=== PATIENT | male | born 1990 | race Caucasian/White ===

== ENCOUNTER 2020-04-04 15:08 | Inpatient (IN) ==
[2020-04-04] MEDS ORDERED: ONDANSETRON 4 MG/2 ML VIAL IV STA (16:09)
[2020-04-04] MEDS ORDERED: SODIUM CHLORIDE 0.9% 1,000 ML IV STA (16:09)
[2020-04-04 16:28] LABS: Basophils # 0.1 10*3/uL (0.0-0.2); Basophils % 0.9 % (0.0-0.8); Eosinophils # 0.3 10*3/uL (0.0-0.87); Eosinophils % 4.6 % (0.00-10.9); Hemoglobin 14.2 GM/DL (14.0-18.0); Immature Granulocytes % 0.2 %; Immature Granulocytes Absolute 0.01 #; Lymphocytes % 36.4 % (21.2-54.2); Mean Corpuscular Volume 91.5 FL (87-102); Mean Platelet Volume 10.9 FL (9.6-12.0); Monocytes % 11.3 % (1.7-12.7); Neutrophils % 46.6 % (38.7-73.9); Platelet Count 197 T/CUMM (130-400); Red Cell Distribution Width 14.8 % (9.3-17.3); White Blood Count 5.6 T/CUMM (4-12)
[2020-04-04 16:53] LABS: Bilirubin,Urine Small mg/dL (Negative); Blood, Urine Negative (Negative); Glucose,Urine (UA) >=500 mg/dL (Negative); Ketones,Urine Negative (Negative); Nitrite,Urine Negative (Negative); Protein,Urine Negative; Squamous Epithelial Cell,Urine Occasional /HPF (0-10); Urine Appearance CLEAR (Clear); Urine Color Amber (Yellow); Urine Specific Gravity 1.015 (1.001-1.035); Urine Urobilinogen < 2.0 EU/DL (0.2-1.0)
[2020-04-04 16:56] LABS: Albumin 3.4 G/DL (3.4-5.0); Bilirubin,Total 4.2 MG/DL (0.2-1.0); Calcium 8.5 MG/DL (8.5-10.1); Potassium 3.9 MMOL/L (3.5-5.1); Total Protein 6.4 G/DL (6.4-8.3)
[2020-04-04 17:40] LABS: Barbiturates Screen,Urine Negative (Negative); Benzodiazepines Screen,Urine Negative (Negative); Cannabinoid Screen,Urine Positive (Negative); Opiate Screen,Urine Negative (Negative); Phencyclidine Screen,Urine Negative (Negative)
[2020-04-04 17:54] LABS: Hepatitis B Core IgM Quant 0.07 Index; Hepatitis B Surface Ag Quant < 0.10 Index; Hepatitis B Surface Ag Result Non-Reactive (NonReactive); Hepatitis C Virus Ab Quant 0.06 Index; Hepatitis C Virus Ab Result Non-Reactive (NonReactive)
[2020-04-04] MEDS ORDERED: GLUCAGON 1 MG VIAL IM PRN (18:18)
[2020-04-04] MEDS ORDERED: DEXTROSE 50% 25 GM/50 ML VIAL IV PRN (18:18)
[2020-04-04] MEDS ORDERED: PROMETHAZINE 25 MG/1 ML VIAL IM PRN (18:18)
[2020-04-04] MEDS: MORPHINE 4 MG/1 ML VIAL IV PRN (20:35)
[2020-04-04] MEDS: ENOXAPARIN 40 MG/0.4 ML SYRINGE SUBCUT SCH (20:36)
[2020-04-05] MEDS: MORPHINE 4 MG/1 ML VIAL IV PRN ×3 (00:29→15:59)
[2020-04-05] MEDS: POTASSIUM CHLORIDE INJ 10 MEQ in SODIUM CHLORIDE 0.45% 1,000 ML IV SCH ×3 (00:30→18:23)
[2020-04-05 05:34] LABS: Basophils # 0.1 10*3/uL (0.0-0.2); Basophils % 0.9 % (0.0-0.8); Eosinophils # 0.6 10*3/uL (0.0-0.87); Eosinophils % 11.4 % (0.00-10.9); Hematocrit 37.7 VOL% (42.0-52.0); Immature Granulocytes % 0.4 %; Immature Granulocytes Absolute 0.02 #; Lymphocytes # 2.2 10*3/uL (1.4-4.0); Lymphocytes % 40.2 % (21.2-54.2); Mean Corpuscular HGB Conc 34.5 GM/DL (32-36); Mean Corpuscular Volume 88.3 FL (87-102); Mean Platelet Volume 11.5 FL (9.6-12.0); Monocytes % 13.4 % (1.7-12.7); Neutrophils % 33.7 % (38.7-73.9); Platelet Count 190 T/CUMM (130-400); Red Blood Count 4.27 MC/CUMM (3.8-5.5); Red Cell Distribution Width 14.9 % (9.3-17.3); White Blood Count 5.4 T/CUMM (4-12)
[2020-04-05 05:57] LABS: Eosinophils 10 % (0-10); Lymphocytes 43 % (20-55); Platelet Estimate Normal; Segmented Neutrophils 41 % (50-85)
[2020-04-05 05:58] LABS: Total Cells Counted 100
[2020-04-05 05:59] LABS: Albumin 2.7 G/DL (3.4-5.0); Bilirubin,Total 4.6 MG/DL (0.2-1.0); Osmolality,Calculated 276.4 MOS/KG (273-304); Potassium 3.8 MMOL/L (3.5-5.1); Total Protein 5.4 G/DL (6.4-8.3)
[2020-04-05] MEDS: ONDANSETRON 4 MG/2 ML VIAL IV PRN ×2 (06:48→16:04)
[2020-04-05] MEDS: PANTOPRAZOLE 40 MG TABLET PO SCH (10:50)
[2020-04-05] MEDS: ENOXAPARIN 40 MG/0.4 ML SYRINGE SUBCUT SCH (22:19)
[2020-04-06] MEDS: POTASSIUM CHLORIDE INJ 10 MEQ in SODIUM CHLORIDE 0.45% 1,000 ML IV SCH ×3 (03:07→22:50)
[2020-04-06 09:31] LABS: Basophils # 0.1 10*3/uL (0.0-0.2); Basophils % 1.3 % (0.0-0.8); Eosinophils # 0.3 10*3/uL (0.0-0.87); Eosinophils % 6.5 % (0.00-10.9); Hematocrit 42.4 VOL% (42.0-52.0); Hemoglobin 14.1 GM/DL (14.0-18.0); Immature Granulocytes % 0.4 %; Immature Granulocytes Absolute 0.02 #; Lymphocytes # 1.7 10*3/uL (1.4-4.0); Lymphocytes % 32.3 % (21.2-54.2); Mean Corpuscular HGB Conc 33.3 GM/DL (32-36); Mean Corpuscular Volume 89.3 FL (87-102); Mean Platelet Volume 10.5 FL (9.6-12.0); Monocytes % 13.1 % (1.7-12.7); Neutrophils % 46.4 % (38.7-73.9); Platelet Count 221 T/CUMM (130-400); Red Blood Count 4.75 MC/CUMM (3.8-5.5); Red Cell Distribution Width 15.5 % (9.3-17.3); White Blood Count 5.2 T/CUMM (4-12)
[2020-04-06] MEDS: ONDANSETRON 4 MG/2 ML VIAL IV PRN (09:34)
[2020-04-06] MEDS: PANTOPRAZOLE 40 MG TABLET PO SCH (09:34)
[2020-04-06] MEDS: MORPHINE 4 MG/1 ML VIAL IV PRN ×3 (09:34→22:48)
[2020-04-06 09:56] LABS: Albumin 3.1 G/DL (3.4-5.0); Bilirubin,Total 7.8 MG/DL (0.2-1.0); Calcium 8.8 MG/DL (8.5-10.1); Osmolality,Calculated 271.7 MOS/KG (273-304); Potassium 3.7 MMOL/L (3.5-5.1); Total Protein 6.1 G/DL (6.4-8.3)
[2020-04-06 10:34] LABS: Band Neutrophils 1 % (0-10); Eosinophils 7 % (0-10); Lymphocytes 33 % (20-55); Metamyelocytes 1 %; Platelet Estimate Normal; Segmented Neutrophils 43 % (50-85); Total Cells Counted 100
[2020-04-06 10:35] LABS: Anisocytosis Slight; Atypical Lymphocytes Few; Hypochromasia Slight; Macrocytosis 1+
[2020-04-06] MEDS: ENOXAPARIN 40 MG/0.4 ML SYRINGE SUBCUT SCH (21:21)
[2020-04-07 05:33] LABS: Basophils # 0.1 10*3/uL (0.0-0.2); Basophils % 1.1 % (0.0-0.8); Eosinophils # 0.5 10*3/uL (0.0-0.87); Hematocrit 40.6 VOL% (42.0-52.0); Hemoglobin 13.8 GM/DL (14.0-18.0); Immature Granulocytes % 0.4 %; Immature Granulocytes Absolute 0.02 #; Lymphocytes % 35.3 % (21.2-54.2); Mean Corpuscular Volume 88.3 FL (87-102); Mean Platelet Volume 11.2 FL (9.6-12.0); Monocytes % 13.5 % (1.7-12.7); Neutrophils % 41.7 % (38.7-73.9); Platelet Count 224 T/CUMM (130-400); Red Cell Distribution Width 15.7 % (9.3-17.3); White Blood Count 5.6 T/CUMM (4-12)
[2020-04-07 06:04] LABS: Eosinophils 8 % (0-10); Lymphocytes 39 % (20-55); Platelet Estimate Normal; Segmented Neutrophils 40 % (50-85); Total Cells Counted 100
[2020-04-07 06:16] LABS: Albumin 2.8 G/DL (3.4-5.0); Bilirubin,Total 7.8 MG/DL (0.2-1.0); Calcium 8.4 MG/DL (8.5-10.1); Osmolality,Calculated 272.7 MOS/KG (273-304)
[2020-04-07] MEDS: PANTOPRAZOLE 40 MG TABLET PO SCH (10:12)
[2020-04-07] MEDS: POTASSIUM CHLORIDE INJ 10 MEQ in SODIUM CHLORIDE 0.45% 1,000 ML IV SCH (17:11)
[2020-04-07] MEDS: MORPHINE 4 MG/1 ML VIAL IV PRN (17:59)
[2020-04-07] MEDS: ENOXAPARIN 40 MG/0.4 ML SYRINGE SUBCUT SCH (22:20)
[2020-04-08] MEDS: POTASSIUM CHLORIDE INJ 10 MEQ in SODIUM CHLORIDE 0.45% 1,000 ML IV SCH ×3 (01:56→14:16)
[2020-04-08] MEDS: PANTOPRAZOLE 40 MG TABLET PO SCH (08:27)
[2020-04-08] MEDS: ONDANSETRON 4 MG/2 ML VIAL IV PRN (08:27)
[2020-04-08 09:22] LABS: Albumin 2.9 G/DL (3.4-5.0); Calcium 8.7 MG/DL (8.5-10.1); Osmolality,Calculated 265.2 MOS/KG (273-304); Potassium 3.6 MMOL/L (3.5-5.1); Total Protein 6.4 G/DL (6.4-8.3)
[2020-04-08 14:13] VITALS: BP 116/58
== END 2020-04-08 13:40 | disposition home or self-care (01) ==
LOC: N.ED 15:08 → N.EDINP 15:08 → N.3E 19:44
PROVIDERS: ADMIT Family Medicine; ATTEND Family Medicine

== ENCOUNTER 2020-06-29 14:46 | Inpatient (IN) ==
[2020-06-29] MEDS ORDERED: ONDANSETRON 4 MG/2 ML VIAL IV PRN (21:23)
[2020-06-29 22:33] LABS: Basophils # 0.1 10*3/uL (0.0-0.2); Basophils % 0.5 % (0.0-0.8); Eosinophils # 0.6 10*3/uL (0.0-0.87); Eosinophils % 6.8 % (0.00-10.9); Hematocrit 36.3 VOL% (42.0-52.0); Hemoglobin 11.9 GM/DL (14.0-18.0); Immature Granulocytes % 0.4 %; Immature Granulocytes Absolute 0.04 #; Lymphocytes # 3.3 10*3/uL (1.4-4.0); Lymphocytes % 34.8 % (21.2-54.2); Mean Corpuscular HGB Conc 32.8 GM/DL (32-36); Mean Corpuscular Volume 94.5 FL (87-102); Mean Platelet Volume 10.2 FL (9.6-12.0); Monocytes % 9.3 % (1.7-12.7); Neutrophils % 48.2 % (38.7-73.9); Platelet Count 256 T/CUMM (130-400); Red Blood Count 3.84 MC/CUMM (3.8-5.5); Red Cell Distribution Width 13.3 % (9.3-17.3); White Blood Count 9.4 T/CUMM (4-12)
[2020-06-29 22:55] LABS: Alanine Aminotransferase 45 U/L (16-61); Albumin 2.9 G/DL (3.4-5.0); Alkaline Phosphatase 87 U/L (45-117); Aspartate Amino Transferase 28 U/L (0-37); Bilirubin,Total < 0.39 MG/DL (0.2-1.0); Blood Urea Nitrogen 26 MG/DL (7-18); Calcium 8.6 MG/DL (8.5-10.1); Carbon Dioxide 26 MMOL/L (21-32); Estimated Glom Filtration Rate 117 ML/MIN; Glucose 116 MG/DL (74-106); Osmolality,Calculated 284.4 MOS/KG (273-304); Potassium 3.2 MMOL/L (3.5-5.1); Sodium 140 MMOL/L (136-145); Total Protein 5.9 G/DL (6.4-8.2)
[2020-06-29 22:57] LABS: Eosinophils 9 % (0-10); Hypochromasia 1+; Lymphocytes 34 % (20-55); Platelet Estimate Adequate; Reactive Lymphocytes Few; Segmented Neutrophils 47 % (50-85); Total Cells Counted 100
[2020-06-29] MEDS: CIPROFLOXACIN 500 MG TABLET PO SCH (23:07)
[2020-06-29] MEDS: CLINDAMYCIN INJ 900 MG/50 ML PREMIX IV SCH (23:10)
[2020-06-29] MEDS: LACTATED RINGERS 1,000 ML IV SCH (23:32)
[2020-06-30] MEDS: CLINDAMYCIN INJ 900 MG/50 ML PREMIX IV SCH ×3 (05:34→22:04)
[2020-06-30 06:27] LABS: Barbiturates Screen,Urine Negative (Negative); Benzodiazepines Screen,Urine Negative (Negative); Cannabinoid Screen,Urine Positive (Negative); Opiate Screen,Urine Positive (Negative); Phencyclidine Screen,Urine Negative (Negative)
[2020-06-30] MEDS: LACTATED RINGERS 1,000 ML IV SCH ×2 (08:33→12:43)
[2020-06-30] MEDS ORDERED: MIDAZOLAM 2 MG/2 ML VIAL ONE (10:44)
[2020-06-30] MEDS ORDERED: fentaNYL 100 MCG/2 ML VIAL ONE ×2 (10:44→12:19)
[2020-06-30] MEDS ORDERED: propofoL 200 MG/20 ML VIAL IV ONE (10:44)
[2020-06-30] MEDS ORDERED: LIDOCAINE 2% 5 ML VIAL ONE (10:44)
[2020-06-30] MEDS ORDERED: HYDROmorphone 2 MG/1 ML VIAL IV PRN (12:54)
[2020-06-30] MEDS ORDERED: MEPERIDINE 25 MG/1 ML VIAL IV PRN (12:54)
[2020-06-30] MEDS ORDERED: ONDANSETRON 4 MG/2 ML VIAL IV PRN (12:54)
[2020-06-30] MEDS: CIPROFLOXACIN 500 MG TABLET PO SCH ×2 (14:27→22:04)
[2020-07-01] MEDS: CLINDAMYCIN INJ 900 MG/50 ML PREMIX IV SCH ×3 (04:30→20:59)
[2020-07-01 07:27] LABS: Calcium 8.1 MG/DL (8.5-10.1); Osmolality,Calculated 280.3 MOS/KG (273-304)
[2020-07-01] MEDS: CIPROFLOXACIN 500 MG TABLET PO SCH ×2 (08:32→20:56)
[2020-07-01] MEDS: ENOXAPARIN 40 MG/0.4 ML SYRINGE SUBCUT SCH (08:32)
[2020-07-01] MEDS ORDERED: POTASSIUM CHLORIDE 20 MEQ TABLET PO SCH (09:00)
[2020-07-02] MEDS: CLINDAMYCIN INJ 900 MG/50 ML PREMIX IV SCH ×3 (05:09→20:57)
[2020-07-02] MEDS: CIPROFLOXACIN 500 MG TABLET PO SCH ×2 (09:04→20:53)
[2020-07-02] MEDS: ENOXAPARIN 40 MG/0.4 ML SYRINGE SUBCUT SCH (10:03)
[2020-07-03] MEDS: CLINDAMYCIN INJ 900 MG/50 ML PREMIX IV SCH ×3 (05:30→21:48)
[2020-07-03] MEDS: ENOXAPARIN 40 MG/0.4 ML SYRINGE SUBCUT SCH (10:29)
[2020-07-03] MEDS: CIPROFLOXACIN 500 MG TABLET PO SCH ×2 (10:29→21:49)
[2020-07-04] MEDS: CLINDAMYCIN INJ 900 MG/50 ML PREMIX IV SCH (05:30)
[2020-07-04 08:19] VITALS: BP 123/58
[2020-07-04] MEDS: CIPROFLOXACIN 500 MG TABLET PO SCH (10:56)
[2020-07-04] MEDS: ENOXAPARIN 40 MG/0.4 ML SYRINGE SUBCUT SCH (10:57)
== END 2020-07-04 11:14 | disposition home or self-care (01) | DRG 316 ==
LOC: N.3E 20:02 → INTOOBSV 20:02
PROVIDERS: ADMIT Orthopaedic Surgery; ATTEND Orthopaedic Surgery